=== PATIENT | male | born 1970 | race African-American/Black ===

== ENCOUNTER 2024-01-23 13:09 | Inpatient (IN) | payer OTHER ==
[2024-01-23 13:45] VITALS: BMI 23.5
[2024-01-23] MEDS ORDERED: ACETAMINOPHEN 325 MG TABLET (FP) PO PRN (14:11)
[2024-01-23] MEDS ORDERED: LOPERAMIDE HCL 2 MG CAPSULE PO PRN (14:11)
[2024-01-23] MEDS ORDERED: BISMUTH SUBSALICYLATE 524 MG/30 ML PO PRN (14:11)
[2024-01-23] MEDS ORDERED: NALOXONE HCL 0.4 MG/ML VIAL IM PRN (14:11)
[2024-01-23] MEDS ORDERED: NALOXONE (NARCAN) HCL 4 MG/0.1 ML SPRAY NS PRN (14:11)
[2024-01-23] MEDS ORDERED: MAG HYDROX/AL HYDROX/SIMETH 30 ML UNIT-DOSE CUP PO PRN (14:11)
[2024-01-23] MEDS ORDERED: MAGNESIUM HYDROX 2400MG/30ML ORAL SUSPENSION 30 ML CUP PO PRN (14:11)
[2024-01-23] MEDS ORDERED: P-EPHED 60MG/TRIPROLIDI 2.5MG TABLET PO PRN (14:11)
[2024-01-23] MEDS ORDERED: BENZOCAINE/MENTHOL (CHLORASEPTIC ) LOZENGE MM PRN (14:11)
[2024-01-23] MEDS ORDERED: ONDANSETRON *ODT* 4 MG TABLET SL PRN (14:11)
[2024-01-23] MEDS ORDERED: IBUPROFEN 400 MG TABLET (FP) PO PRN (14:11)
[2024-01-23] MEDS ORDERED: BENZONATATE 200 MG CAPSULE PO PRN (14:11)
[2024-01-23] MEDS ORDERED: guaiFENesin 600 MG TABLET.ER (FP) PO PRN (14:11)
[2024-01-23] MEDS ORDERED: NICOTINE POLACRILEX 2 MG LOZENGE BC PRN (14:11)
[2024-01-23] MEDS ORDERED: POLYETHYLENE GLYCOL (HEALTHYLAX) 3350 17 GM PACKET PO PRN (14:11)
[2024-01-23] MEDS ORDERED: NICOTINE POLACRILEX 2 MG GUM BUC PRN (14:11)
[2024-01-23] MEDS ORDERED: cloNIDine HCL 0.1 MG TABLET ONE (14:51)
[2024-01-23] MEDS: cloNIDine HCL 0.1 MG TABLET PO ONE (14:53)
[2024-01-23] MEDS: amLODIPine BESYLATE 10 MG TABLET (FP) PO ONE (15:45)
[2024-01-23] MEDS: hydrOXYzine PAMOATE 25 MG CAPSULE (FP) PO PRN (20:59)
[2024-01-23] MEDS: DICYCLOMINE HCL 10 MG CAPSULE PO PRN (20:59)
[2024-01-23] MEDS: THIAMINE 100 MG TABLET PO SCH (20:59)
[2024-01-23] MEDS: MELATONIN 5 MG TABLETS PO SCH (20:59)
[2024-01-23] MEDS: METHOCARBAMOL 500 MG TABLET PO PRN (20:59)
[2024-01-24] MEDS: cloNIDine HCL 0.1 MG TABLET PO ONE (06:36)
[2024-01-24] MEDS: methaDONE HCL 10 MG TABLET (FOR DETOX USE ONLY) PO ONE (09:28)
[2024-01-24] MEDS: amLODIPine BESYLATE 10 MG TABLET (FP) PO SCH (09:28)
[2024-01-24] MEDS: cloNIDine HCL 0.1 MG TABLET PO SCH (09:28)
[2024-01-24] MEDS: BUPRENORPHINE/NALOXONE 0.5 MG/0.125 MG FILM SL ONE ×2 (09:31→22:05)
[2024-01-24] MEDS ORDERED: amLODIPine BESYLATE 5 MG TABLET (FP) PO SCH (10:00)
[2024-01-24] MEDS: PRENATAL VITAMINS W/ FOLIC ACID TABLET (FP) PO SCH (10:01)
[2024-01-24 12:24] LABS: HEMATOCRIT 42.3 % (35.4-49); HEMOGLOBIN 13.8 GM/dL (11.7-16.9); MCH 27.1 pg (25.7-33.7); MCHC 32.5 g/dl (32.0-35.9); MEAN CELL VOLUME 83.5 fl (80-96); MEAN PLT VOLUME 8.2 fl (7.5-11.1); PLATELET COUNT 254 10^3/uL (134-434); POTASSIUM 3.8 mmol/L (3.5-5.1); RBC 5.07 M/mm3 (4.00-5.60); WHITE BLOOD COUNT 8.2 K/mm3 (4.0-10.0)
[2024-01-24 12:27] LABS: ALBUMIN 3.9 g/dl (3.4-5.0); CALCIUM 9.4 mg/dL (8.5-10.1)
[2024-01-24 12:29] LABS: BLOOD UREA NITROGEN 10.2 mg/dL (7-18)
[2024-01-24 12:31] LABS: BILIRUBIN,TOTAL 0.3 mg/dL (0.2-1)
[2024-01-24 12:32] LABS: TOT PROT 7.4 g/dl (6.4-8.2)
[2024-01-24] MEDS: IBUPROFEN 600 MG TABLET (FP) PO PRN (17:26)
[2024-01-24] MEDS: traZODone HCL 50 MG TABLET (FP) PO SCH (22:02)
[2024-01-25] MEDS: BUPRENORPHINE/NALOXONE 0.5 MG/0.125 MG FILM SL SCH (09:32)
[2024-01-26] MEDS: methaDONE HCL 10 MG TABLET (FOR DETOX USE ONLY) PO ONE (09:50)
[2024-01-26] MEDS: BUPRENORPHINE/NALOXONE 2 MG/0.5 MG FILM PACKET SL SCH (09:51)
[2024-01-27] MEDS: BUPRENORPHINE/NALOXONE 4 MG/1 MG FILM PACKET SL SCH (10:39)
[2024-01-28] MEDS: methaDONE HCL 10 MG TABLET (FOR DETOX USE ONLY) PO ONE (10:44)
[2024-01-28] MEDS: BUPRENORPHINE/NALOXONE 8 MG/2 MG FILM PACKET SL SCH (10:46)
[2024-01-29 06:52] VITALS: RESP 16
[2024-01-29 08:48] VITALS: BP 157/89; PULSE 70; TEMP 97.1
[2024-01-29] MEDS: BUPRENORPHINE/NALOXONE 8 MG/2 MG FILM PACKET SL SCH (09:07)
== END 2024-01-29 09:47 | disposition home or self-care (01) | DRG 773 ==
LOC: YASAS 13:09 → Y6N 14:38
PROVIDERS: ADMIT Allergy & Immunology; ATTEND Surgery
PROC: HZ2ZZZZ Detoxification Services for Substance Abuse Treatment (ICD-10-PCS; principal; 2024-01-23)
DX: F11.23 Opioid dependence with withdrawal (principal); F14.20 Cocaine dependence, uncomplicated; F17.210 Nicotine dependence, cigarettes, uncomplicated; F19.282 Other psychoactive substance dependence with psychoactive substance-induced sleep disorder; F19.280 Other psychoactive substance dependence with psychoactive substance-induced anxiety disorder; F19.24 Other psychoactive substance dependence with psychoactive substance-induced mood disorder; I10 Essential (primary) hypertension
CPT/HCPCS: 36415; 80053; 80305; 80307; 85027; 86780; 93005; 93010